=== PATIENT | female | born 1965 | race Caucasian/White ===

== ENCOUNTER → 2023-11-25 06:16 | Outpatient (REF) | payer BC, SELFPAY ==
[2023-11-25 09:50] LABS: % Basophils 0.7 % (0-2); % Eosinophils 1.5 % (0-6); % Immature Granulocytes 0.2 % (0-0.5); % Lymphocytes 37.2 % (20.5-51.1); % Monocytes 10.5 % (1.7-9.3); % Neutrophils 49.9 % (42.2-75.2); Absolute Eosinophils 0.1 10^3/uL (0-0.7); Absolute Lymphocytes 1.7 10^3/uL (1.2-3.4); Absolute Monocytes 0.5 10^3/uL (0.1-0.6); Absolute Neutrophils 2.3 10^3/uL (1.4-6.5); Hematocrit 38.6 % (37.0-47.0); Mean Corp Hgb Conc. 33.7 g/dL (33.0-37.0); Mean Corpuscular Hgb 31.8 pg (27.0-31.0); Mean Corpuscular Volume 94.4 fL (81.0-99.0); Nucleated Red Blood Cells % 0 %; Platelet Count 164 10^3/uL (130-400); Red Blood Cell Count 4.09 10^6/uL (4.20-5.40); Red Cell Dist. Width 12.2 % (11.5-14.5); White Blood Cell Count 4.6 10^3/uL (4.8-10.8)
[2023-11-25 10:23] LABS: ALT (SGPT) 22 U/L (0-35); AST (SGOT) 30 U/L (14-36); Albumin 4.6 g/dl (3.5-5.0); Alkaline Phosphatase 67 U/L (38-126); Blood Urea Nitrogen 18 mg/dl (7-17); Calcium 10.4 mg/dl (8.4-10.2); Carbon Dioxide 27 mmol/L (22-30); Chloride 105 mmol/L (98-107); Glucose 86 mg/dl (70-99); HDL Cholesterol 79 mg/dl; LDL Cholesterol, Calculated 50 mg/dl; Potassium 4.5 mmol/L (3.5-5.1); Sodium 137 mmol/L (135-145); Total Bilirubin 0.6 mg/dl (0.2-1.3); Total Cholesterol 140 mg/dl (50-199); Total Protein 7.2 g/dl (6.3-8.2); Triglyceride 56 mg/dl (10-149); Very Low Density Lipoprotein 11 mg/dl (0-30); eGFR > 60.00
[2023-11-25 11:36] LABS: TSH Reflex To Free T4 2.94 uIU/ml (0.47-4.68)
[2023-11-25 11:55] LABS: Vitamin B12 202 pg/ml (239-931)
== END ==
LOC: HWLAB 06:16
PROVIDERS: ATTENDING PHYSICIAN Family Medicine
DX: Z00.00 Encounter for general adult medical examination without abnormal findings (principal); E53.8 Deficiency of other specified B group vitamins
CPT/HCPCS: 36415; 80053; 80061; 82607; 84443; 85025

== ENCOUNTER → 2023-12-05 14:56 | Outpatient (REF) | payer BC, SELFPAY | LOC: RAD 14:56 | PROVIDERS: ATTENDING PHYSICIAN Internal Medicine | DX: Z13.820 Encounter for screening for osteoporosis (principal); E55.9 Vitamin D deficiency, unspecified | CPT/HCPCS: 77080 ==

== ENCOUNTER 2024-05-23 16:52 | Emergency (ER) | payer BC, SELFPAY ==
[2024-05-23 16:53] VITALS: BP 134/78
--- NOTE | 2024-05-23 18:06 | ED.GENMED ---
History of Present Illness
<Danielle Porter MD, Resident - Last Filed: 05/23/24 19:54>
General
Chief Complaint: Headache
Source: patient
Time Seen by Provider: 05/23/24 17:29
History of Present Illness
History of Present Illness:
59-year-old right-handed female , Ms. Sirena Nugent with no significant past medical history presented to the ER reporting headaches that started 3 weeks ago. Patient reports that her office did not have proper air conditioning and it was very
hot, thinks that the warm environment has triggered her headaches. She reports the headache is unilateral on the left side, frontal and temporal regions, associated with intermittent blurry vision, nausea brief episode of palpitations last night.
Patient denies vomiting, photophobia, lightheadedness, fevers, stiff neck, numbness/weakness/tingling, chest pain, abdominal pain, bladder/bowel disturbances. No history of migraines.
Past History
<Danielle Porter MD, Resident - Last Filed: 05/23/24 19:54>
Past History
ED Past Medical History: GERD and Psychiatric (Anxiety)
ED Past Surgical History: Cholecystectomy, Gynecological (Laparoscopy), Orthopedic (rotator cuff and foot surgery) and Tonsilectomy
Patient has exhibited threatening behavior?: No
PSI?: No
Social History
Tobacco: Non-smoker
Alcohol: Occasional
Drug: None
Personal:
Living: with family
Employment: Employed
Family History
Family History: Other (Noncontributory)
Review of Systems
<Danielle Porter MD, Resident - Last Filed: 05/23/24 19:54>
Review of Systems
All Other Systems: ROS reviewed and negative except as documented in HPI and ROS
Phy Exam
<Danielle Porter MD, Resident - Last Filed: 05/23/24 19:54>
Physical Exam
Physical Exam:
GEN: Well appearing, NAD, WDWN
Eyes: PERRLA, EOMs intact, no scleral icterus
HENT: NCAT, oral mucosa moist, no JVD, no cervical adenopathy.
Lungs: CTAB, no wheezes, rales, rhonchi, normal chest wall excursion
Cardiac: RRR, no M/R/G, no peripheral edema. Radial pulses 2+ bilat
Abdomen: S, NT, ND, NABS, no masses or hepatosplenomegaly
Neuro: AO x 3, no focal deficits to BUE/BLE, normal sensation throughout, cranial nerves II to XII intact.
Skin: No rashes, petechiae. Normal color, no pallor or jaundice.
Psych: Calm, cooperative, proper hygiene
Course
<[facility] MD, Resident - Last Filed: 05/23/24 19:54>
Orders/Labs/Results
Orders:
Orders
05/23/24 18:03
0.9% Sodium Chloride 500 ml [Nss] 500 ml IV BOLUS
Diphenhydramine [Benadryl] 25 mg IV NOW STA
Magnesium Sulfate 1 G/D5w [Magnesium Sulfate] 1 gm in 100 ml IV NOW
Prochlorperazine [Compazine] 10 mg IV NOW STA
05/23/24 18:05
CT Head W/o Iv Contrast Urgent
Comment:
Reason For Exam: headache
05/23/24 18:28
Complete Blood Count/With Diff Urgent
Comprehensive Metabolic Panel Urgent
Abnormal Lab Results
05/23/24
18:28
WBC 4.2 L 10^3/uL
(4.8-10.8)
RBC 3.99 L 10^6/uL
(4.20-5.40)
Hct 36.1 L %
(37.0-47.0)
MCH 31.8 H pg
(27.0-31.0)
MPV 11.5 H fL
(7.4-10.4)
Absolute Neuts (auto) 1.2 L 10^3/uL
(1.4-6.5)
Neutrophils % 29.1 L %
(42.2-75.2)
Lymphocytes % 57.2 H %
(20.5-51.1)
Monocytes % 12.0 H %
(1.7-9.3)
05/23/24 18:28
05/23/24 18:28
Vital Signs
Initial and Last Documented VS:
Initial Vital Signs
Temp Pulse Resp BP Pulse Ox
98.4 F 82 16 134/78 98
05/23/24 16:53 05/23/24 16:53 05/23/24 16:53 05/23/24 16:53 05/23/24 16:53
Last Documented Vital Signs
Temp Pulse Resp BP Pulse Ox
98.4 F 82 16 134/78 98
05/23/24 16:53 05/23/24 16:53 05/23/24 16:53 05/23/24 16:53 05/23/24 16:53
<Ezio Green MD - Last Filed: 05/23/24 22:20>
Orders/Labs/Results
Orders:
Orders
05/23/24 18:03
0.9% Sodium Chloride 500 ml [Nss] 500 ml IV BOLUS
Diphenhydramine [Benadryl] 25 mg IV NOW STA
Magnesium Sulfate 1 G/D5w [Magnesium Sulfate] 1 gm in 100 ml IV NOW
Prochlorperazine [Compazine] 10 mg IV NOW STA
05/23/24 18:05
CT Head W/o Iv Contrast Urgent
Comment:
Reason For Exam: headache
05/23/24 18:28
Complete Blood Count/With Diff Urgent
Comprehensive Metabolic Panel Urgent
Abnormal Lab Results
05/23/24
18:28
WBC 4.2 L 10^3/uL
(4.8-10.8)
RBC 3.99 L 10^6/uL
(4.20-5.40)
Hct 36.1 L %
(37.0-47.0)
MCH 31.8 H pg
(27.0-31.0)
MPV 11.5 H fL
(7.4-10.4)
Absolute Neuts (auto) 1.2 L 10^3/uL
(1.4-6.5)
Neutrophils % 29.1 L %
(42.2-75.2)
Lymphocytes % 57.2 H %
(20.5-51.1)
Monocytes % 12.0 H %
(1.7-9.3)
05/23/24 18:28
05/23/24 18:28
Vital Signs
Initial and Last Documented VS:
Initial Vital Signs
Temp Pulse Resp BP Pulse Ox
98.4 F 82 16 134/78 98
05/23/24 16:53 05/23/24 16:53 05/23/24 16:53 05/23/24 16:53 05/23/24 16:53
Last Documented Vital Signs
Temp Pulse Resp BP Pulse Ox
98.4 F 82 16 134/78 98
05/23/24 16:53 05/23/24 16:53 05/23/24 16:53 05/23/24 16:53 05/23/24 16:53
<Danielle Porter MD, Resident - Last Filed: 05/23/24 19:54>
MDM/Problems Addressed
Differential Diagnosis Includes:
Migraine versus GCA versus TMJ disorder versus cluster headache versus CVA
MDM/Problems Addressed:
CBC, CMP unremarkable
Started her on IV fluids, magnesium
Symptomatic treatment with Compazine, Benadryl
CT scan head without contrast�no acute intracranial abnormality
Vital stable
Patient is stable to be discharged home.
<Danielle Porter MD, Resident - Last Filed: 05/23/24 19:54>
*Critical Care Note
Total Time (30-74mins, 75-104mins- exclusive of procedures): Not Applicable
ED Attending Note
<Danielle Porter MD, Resident - Last Filed: 05/23/24 19:54>
-
Portions of this chart may have been created with voice recognition software.� Occasional wrong word or��sound alike� substitutions may have occurred due to the inherent limitations of voice recognition software.
<Ezio Green MD - Last Filed: 05/23/24 22:20>
ED Attending Note
ED Attending Note:
Agree with resident documentation. Patient with history of headaches presents with ongoing headache suggestive of migraine. Given migraine cocktail with improvement. Do not suspect subarachnoid given thunderclap headache, weeks of duration. No
fevers or nuchal rigitidy to suggest meningitis. will refer to neurology for outpatient workup.
Discharge Plan
Departure
Patient Disposition: Home (Routine Discharge)
Date of Disposition: 05/23/24
Time of Disposition: 19:52
Patient with high blood pressure during this ER visit?: No
Discharge Problem:
Headache
Instructions: Migraines (DC)
Prescriptions:
No Action
prochlorperazine maleate [Compazine] 5 mg tablet
5 mg PO BID PRN (Reason: nausea) Qty: 10 0RF
Referrals:
Maritza Vera MD [Family Provider] -
Activity Restrictions/Additional Instructions:
Patient advised to follow-up with a neurologist.
Patient is advised to follow-up with her primary care physician within a week.
Interventions
Interventions:
*Risk Screen - Suicide Last Done: 05/23/24 20:17
*General Assessment Last Done: 05/23/24 20:17
*Neglect/Abuse Screening Last Done: 05/23/24 20:17
ED- Fall Risk Assessment Last Done: 05/23/24 20:17
*ED COVID-19 Vaccine History Last Done: 05/23/24 20:17
*Nursing Disposition Last Done: 05/23/24 20:17
ED- Neurological Assessment Last Done: 05/23/24 20:17
Discharge Date and Time
Discharge Date/Time: 05/23/24 20:18
Print Language: SYRIAC
[2024-05-23] MEDS: NSS 500 IV (18:33)
[2024-05-23] MEDS: COMPAZINE 10 MG IV (18:40)
[2024-05-23] MEDS: BENADRYL 25 MG IV (18:41)
[2024-05-23] MEDS: MAGNESIUM SULFATE 100 IV (18:42)
[2024-05-23 18:54] LABS: Hematocrit 36.1 % (37.0-47.0); Hemoglobin 12.7 g/dL (12.0-16.0); Mean Corp Hgb Conc. 35.2 g/dL (33.0-37.0); Mean Corpuscular Hgb 31.8 pg (27.0-31.0); Mean Corpuscular Volume 90.5 fL (81.0-99.0); Mean Platelet Volume 11.5 fL (7.4-10.4); Platelet Count 158 10^3/uL (130-400); Red Blood Cell Count 3.99 10^6/uL (4.20-5.40); Red Cell Dist. Width 12.1 % (11.5-14.5); White Blood Cell Count 4.2 10^3/uL (4.8-10.8)
[2024-05-23 18:58] LABS: ALT (SGPT) 17 U/L (0-35); AST (SGOT) 27 U/L (14-36); Albumin 4.5 g/dl (3.5-5.0); Alkaline Phosphatase 74 U/L (38-126); Blood Urea Nitrogen 12 mg/dl (7-17); Calcium 9.9 mg/dl (8.4-10.2); Carbon Dioxide 25 mmol/L (22-30); Chloride 106 mmol/L (98-107); Glucose 91 mg/dl (70-99); Sodium 141 mmol/L (135-145); Total Bilirubin 0.3 mg/dl (0.2-1.3); Total Protein 6.6 g/dl (6.3-8.2); eGFR > 60.00
[2024-05-23 19:15] LABS: % Basophils 0.5 % (0-2); % Immature Granulocytes 0.2 % (0-0.5); % Lymphocytes 57.2 % (20.5-51.1); % Neutrophils 29.1 % (42.2-75.2); Absolute Lymphocytes 2.4 10^3/uL (1.2-3.4); Absolute Monocytes 0.5 10^3/uL (0.1-0.6); Absolute Neutrophils 1.2 10^3/uL (1.4-6.5); Nucleated Red Blood Cells % 0 %
== END 2024-05-23 20:18 | disposition home or self-care (01) ==
LOC: EMR 16:52
PROVIDERS: Student in an Organized Health Care Education/Training Program; EMERGENCY PHYSICIAN Emergency Medicine; FAMILY PHYSICIAN Family Medicine
DX: R51.9 Headache, unspecified (principal)
CPT/HCPCS: 99284; 96365; 96375 ×2; 70450; 80053; 85025

== ENCOUNTER → 2024-06-17 13:06 | Outpatient (REF) | payer BC, SELFPAY ==
[2024-06-17 13:21] VITALS: BP 121/57; BP_SYST 83
== END ==
LOC: RADI 13:06
PROVIDERS: ATTENDING PHYSICIAN Student in an Organized Health Care Education/Training Program; FAMILY PHYSICIAN Internal Medicine
DX: M79.671 Pain in right foot (principal)
CPT/HCPCS: 76882

== ENCOUNTER → 2024-12-17 10:44 | Outpatient (REF) | payer BC, SELFPAY | LOC: RAD 10:44 | PROVIDERS: ATTENDING PHYSICIAN Physician Assistant; FAMILY PHYSICIAN Internal Medicine | DX: M25.559 Pain in unspecified hip (principal) | CPT/HCPCS: 73502; 73552 ==

== ENCOUNTER → 2025-03-07 15:52 | Outpatient (REF) | payer BC, SELFPAY ==
[2025-03-07 16:18] LABS: % Basophils 0.5 % (0-2); % Eosinophils 1.6 % (0-6); % Immature Granulocytes 0.2 % (0-0.5); % Monocytes 6.9 % (1.7-9.3); % Neutrophils 58.8 % (42.2-75.2); Absolute Eosinophils 0.1 10^3/uL (0-0.7); Absolute Monocytes 0.4 10^3/uL (0.1-0.6); Absolute Neutrophils 3.6 10^3/uL (1.4-6.5); Hematocrit 36.8 % (37.0-47.0); Hemoglobin 12.6 g/dL (12.0-16.0); Mean Corp Hgb Conc. 34.2 g/dL (33.0-37.0); Mean Corpuscular Hgb 32.5 pg (27.0-31.0); Mean Corpuscular Volume 94.8 fL (81.0-99.0); Mean Platelet Volume 11.2 fL (7.4-10.4); Nucleated Red Blood Cells % 0 %; Platelet Count 157 10^3/uL (130-400); Red Blood Cell Count 3.88 10^6/uL (4.20-5.40); Red Cell Dist. Width 12.3 % (11.5-14.5); White Blood Cell Count 6.1 10^3/uL (4.8-10.8)
[2025-03-07 16:41] LABS: ALT (SGPT) 16 U/L (0-35); AST (SGOT) 22 U/L (14-36); Albumin 4.5 g/dl (3.5-5.0); Alkaline Phosphatase 57 U/L (38-126); Amylase 80 U/L (30-110); Blood Urea Nitrogen 14 mg/dl (7-17); Carbon Dioxide 28 mmol/L (22-30); Chloride 109 mmol/L (98-107); Glucose 100 mg/dl (70-99); Lipase 210 U/L (23-300); Potassium 3.9 mmol/L (3.5-5.1); Sodium 142 mmol/L (135-145); Total Bilirubin 0.3 mg/dl (0.2-1.3); Total Protein 6.7 g/dl (6.3-8.2); eGFR > 60.00
== END ==
LOC: REG 15:52
PROVIDERS: ATTENDING PHYSICIAN Nurse Practitioner Family; FAMILY PHYSICIAN Internal Medicine
DX: R19.7 Diarrhea, unspecified (principal); R11.0 Nausea
CPT/HCPCS: 36415; 80053; 82150; 83690; 85025; 87045; 87046; 87324; 87328; 87329; 87427; 87449; 89055

== ENCOUNTER → 2025-04-13 12:58 | Outpatient (REF) | payer BC, SELFPAY | LOC: RCS 12:58 | PROVIDERS: ATTENDING PHYSICIAN Nuclear Medicine Nuclear Cardiology; FAMILY PHYSICIAN Internal Medicine | DX: R55 Syncope and collapse (principal); R00.2 Palpitations; I95.9 Hypotension, unspecified | CPT/HCPCS: 93306 ==

== ENCOUNTER → 2025-08-31 06:44 | Outpatient (REF) | payer BC, SELFPAY ==
[2025-08-31 07:37] LABS: Hematocrit 39.4 % (37.0-47.0); Hemoglobin 12.8 g/dL (12.0-16.0); Mean Corp Hgb Conc. 32.5 g/dL (33.0-37.0); Mean Corpuscular Volume 98.7 fL (81.0-99.0); Nucleated Red Blood Cells % 0 %; Platelet Count 181 10^3/uL (130-400); Red Cell Dist. Width 12.0 % (11.5-14.5)
[2025-08-31 08:08] LABS: ALT (SGPT) 19 U/L (0-35); AST (SGOT) 25 U/L (14-36); Albumin 4.9 g/dl (3.5-5.0); Alkaline Phosphatase 46 U/L (38-126); Blood Urea Nitrogen 16 mg/dl (7-17); Calcium 10.4 mg/dl (8.4-10.2); Carbon Dioxide 32 mmol/L (22-30); Chloride 101 mmol/L (98-107); Glucose 77 mg/dl (70-99); Potassium 4.3 mmol/L (3.5-5.1); Sodium 135 mmol/L (135-145); Total Protein 7.4 g/dl (6.3-8.2); eGFR > 60.00
[2025-08-31 08:19] LABS: Vitamin D, 25-OH*** 38.1 ng/mL (30-80)
== END ==
LOC: REG 06:44
PROVIDERS: ATTENDING PHYSICIAN Internal Medicine Rheumatology; FAMILY PHYSICIAN Internal Medicine
DX: M81.0 Age-related osteoporosis without current pathological fracture (principal)
CPT/HCPCS: 36415; 80053; 82306; 85025